=== PATIENT | male | born 1945 | race African-American/Black ===

== ENCOUNTER 2016-12-06 22:52 | Emergency (ER) | payer MEDICARE, OTHER ==
[~2016-12-06] VITALS: Ht 175.3 cm; Wt 92.5 kg
[~2016-12-06 22:52] MED LIST: LEVAQUIN PO; NICOTINE TRANSD21 MG EXT; NORVASC PO
== END 2016-12-07 00:49 | disposition home or self-care (01) ==
LOC: CED 22:52
DX: T78.3XXA Angioneurotic edema, initial encounter (principal); I10 Essential (primary) hypertension; F17.210 Nicotine dependence, cigarettes, uncomplicated; Z88.2 Allergy status to sulfonamides; Z88.8 Allergy status to other drugs, medicaments and biological substances
CPT/HCPCS: 36415; 96374; 96375; 99283; J1200; J2930